=== PATIENT | male | born 1965 | race Caucasian/White ===

== ENCOUNTER 2021-01-29 13:52 | Day surgery (SDC) | payer OTHER ==
[~2021-01-29] VITALS: Ht 193 cm; Wt 110.1 kg
[~2021-01-29 13:52] MED LIST: TADA5TAB2 PO; [UNRECOGNIZED DRUG - OTHER] PO
[2021-01-29 14:14] VITALS: BP 126/91
[2021-01-29] MEDS ORDERED: CHLORHEXIDINE 15 ML UDC ONE (14:19)
[2021-01-29] MEDS ORDERED: LACTATED RINGERS 1,000 ML IV SCH (14:30)
[2021-01-29] MEDS ORDERED: CHLORHEXIDINE 15 ML UDC PO ONE (14:30)
[2021-01-29] MEDS ORDERED: GENTAMICIN 80 MG/2 ML ONE (15:40)
[2021-01-29] MEDS ORDERED: HYDROmorphone 1 MG/ML, 1ML INJ IVPush PRN ×2 (16:30→18:00)
[2021-01-29] MEDS ORDERED: FENTANYL PF 100 MCG/2ML IV PRN ×2 (16:30→18:00)
[2021-01-29] MEDS ORDERED: ACETAMINOPHEN 325 MG TABLET PO PRN ×2 (16:30→18:00)
[2021-01-29] MEDS ORDERED: PROMETHAZINE 25 MG/ML, 1ML IVPush PRN ×2 (16:30→18:00)
[2021-01-29] MEDS ORDERED: HALOPERIDOL 5 MG/ML IV PRN (16:30)
[2021-01-29] MEDS ORDERED: DIPHENHYDRAMINE 50 MG/ML, 1ML IVPush PRN (16:30)
[2021-01-29] MEDS ORDERED: LABETALOL 5MG/ML, 20ML IV PRN ×2 (16:30→18:00)
[2021-01-29] MEDS ORDERED: MEPERIDINE/PF 25MG/0.5ML IVPush PRN (16:30)
[2021-01-29] MEDS ORDERED: hydrALAzine 20 MG/ML, 1ML IV PRN ×2 (16:30→18:00)
[2021-01-29] MEDS ORDERED: OXYcodone 5 MG/5 ML ORAL.SOL UDC PO PRN ×2 (16:30→18:00)
[2021-01-29] MEDS ORDERED: FENTANYL PF 100 MCG/2ML ONE (17:32)
[2021-01-29] MEDS ORDERED: MIDAZOLAM 1 MG/ML, 2ML ONE (17:32)
[2021-01-29] MEDS ORDERED: CEFAZOLIN 1,000 MG ONE ×2 (17:35→17:36)
[2021-01-29] MEDS ORDERED: ONDANSETRON 2MG/ML, 2ML ONE (17:35)
[2021-01-29] MEDS ORDERED: DEXAMETHASONE 4 MG/ML, 1ML ONE (17:35)
[2021-01-29] MEDS ORDERED: PROPOFOL 10 MG/ML, 20ML ONE (17:35)
[2021-01-29] MEDS ORDERED: ONDANSETRON 2MG/ML, 2ML IVPush PRN (18:00)
[2021-01-29] MEDS ORDERED: BUPIVACAINE/PF 0.25% ONE (18:06)
[2021-01-29] MEDS ORDERED: ACETAMINOPHEN 325 MG TABLET ONE (18:46)
== END 2021-01-29 20:30 | disposition home or self-care (01) ==
LOC: OR 13:52
PROVIDERS: ATTEND Urology
DX: N35.013 Post-traumatic anterior urethral stricture (principal); N13.30 Unspecified hydronephrosis; N52.9 Male erectile dysfunction, unspecified; N18.9 Chronic kidney disease, unspecified; Z20.822 Contact with and (suspected) exposure to COVID-19; Z79.899 Other long term (current) drug therapy; Z87.440 Personal history of urinary (tract) infections; Z87.891 Personal history of nicotine dependence
CPT/HCPCS: 52276; C1769; J0690; J1100; J1580; J2250; J2405; J2704; J3010; J7120; U0003; U0005